=== PATIENT | male | born 1970 ===

== ENCOUNTER 2018-10-16 10:49 | Day surgery (SDC) | payer OTHER ==
[2018-10-16] MEDS ORDERED: MethylPREDNISolone Depo 40 mg/ml Inj ONE (11:08)
[2018-10-16] MEDS ORDERED: Iohexol 300 10 ML ONE (11:08)
[2018-10-16] MEDS ORDERED: Bupivacaine HCl 0.25% PF (30 ml) Inj ONE (11:08)
[2018-10-16] MEDS ORDERED: Lidocaine 1% Inj (20ml) ONE (11:09)
--- NOTE | 2018-10-16 11:09 | CP.SDSHP ---
Same Day Surgery H & P - History Proposed Procedure: Caudal epidural steroid injection Pre-Op Diagnosis: Failed back syndrome - Previous Medical/Surgical History Pulmonary: Other - Allergies Allergies: Allergies No Known Allergies Allergy (Verified 02/05/15 08:09) - Physical Exam Mental Status: Alert & Oriented x3 Neuro: WNL Heart: WNL Lungs: WNL - Impression Impression: Failed back syndrome Pt. Evaluated Today:Candidate for Anesthesia & Procedure: Yes Short Stay Discharge - Short Stay Discharge Admitting Diagnosis/Reason for Visit: M96.1 Disposition: HOME/ ROUTINE Referrals: Lala Berrios MD [Primary Care Provider] -
[2018-10-16 12:04] VITALS: BMI 32.6
[2018-10-16] MEDS ORDERED: Lactated Ringer's 1,000 ML IV ONE (12:05)
[2018-10-16] MEDS ORDERED: Midazolam 2 MG/2 ML VIAL ONE (12:34)
[2018-10-16 14:52] VITALS: RESP 18; O2SAT 97
[2018-10-16 15:37] VITALS: BP 118/75; PULSE 72; TEMP 97.6
--- NOTE | 2018-10-16 16:55 | RAD ---
Date of service: 10/16/2018 PROCEDURE: Intraoperative Fluoroscopy. HISTORY: PAIN MANAGEMENT FINDINGS: Fluoroscopic assistance was provided for pain management. Please refer to the operative report from JULIUS Alvarado. Total fluoroscopic time (continuous mode) utilized during the procedure 28.7 seconds. Total exam DLP: 7.76 (mGy).
--- NOTE | 2018-10-16 22:58 | OP ---
PROCEDURE DATE: 10/16/2018 PREOPERATIVE DIAGNOSIS: Failed back syndrome. POSTOPERATIVE DIAGNOSIS: Failed back syndrome. PROCEDURE: Caudal epidural steroid injection. ANESTHESIOLOGIST: Amrik Cornell MD SURGEON: Kendell Cheek MD TYPE OF ANESTHESIA: Monitored anesthesia care. COMPLICATIONS: None. SPECIMEN: None. DESCRIPTION OF PROCEDURE: As follows: After we had discussion of the procedure with the patient including its risks, benefits, alternatives, outcome data, possibility of no effect or increased pain, the patient consented to the procedure. He denies any recent infection, bleeding tendencies, or being on anticoagulant. A decision was then made to proceed to the OR. The patient was placed on the fluoroscopy table into a prone position with two pillows underneath his abdomen. The back was prepped and draped in the usual sterile fashion, and sterile technique was adhered to during the entire procedure. The sacral hiatus was first identified by palpation. Under lateral fluoroscopic guidance, the skin approximately 5 cm distal to this area was then infiltrated with 1% lidocaine using a 25-gauge needle. Subsequently, a 20-gauge 3.5-inch Tuohy needle was then incrementally advanced under fluoroscopic guidance until tip of the needle pierced the sacral hiatus and advanced to the epidural space. This was confirmed by injecting approximately 1 mL Isovue contrast which was seen on the anterior and posterior fluoroscopy view to spread up to the L5 region. At this point, approximately 10 mL of 0.25% Marcaine and Depo-Medrol mixture was gradually injected. The needle was then removed and the patient's back was cleaned and dry bandage was applied. The patient was then transferred to the recovery area in good condition without any signs of [employer] toxicity or any neurological deficit. He will have a followup in our office in approximately two to four weeks. Kendell Cheek MD
== END 2018-10-16 15:35 | disposition home or self-care (01) ==
LOC: H.OPSURG 10:49
PROVIDERS: ATTEND Anesthesiology
DX: M96.1 Postlaminectomy syndrome, not elsewhere classified (principal); E11.9 Type 2 diabetes mellitus without complications; I10 Essential (primary) hypertension
CPT/HCPCS: 62323; 82948; J1030; J2250; J3010; J7120; Q9967